=== PATIENT | female | born 1935 | race Caucasian/White ===

== ENCOUNTER 2020-01-04 18:47 | Emergency (ER) | payer OTHER, MEDICARE ==
[~2020-01-04] VITALS: Ht 165.1 cm; Wt 56.7 kg
[2020-01-04 19:34] VITALS: BP 136/81
--- NOTE | 2020-01-04 19:55 | ER.PDOC ---
General Chief Complaint: Extremities Stated Complaint: SWOLLEN RIGHT KNEE Time seen by MD: 19:51 Source: patient Exam Limitations: no limitations History of Present Illness Initial Comments Right knee pain and swelling for 4 days. No fever or chills. Patient has arthritis of both knees. She does not remember injury. She is not on anticoagulants. Recent Injury: No Where: home Severity: moderate Exacerbated By: walking movement Relieved By: nothing Allergies: Coded Allergies: Sulfa (Sulfonamide Antibiotics) (Verified Allergy, Unknown, 01/04/20) ciprofloxacin (Verified Allergy, Unknown, 01/04/20) Uncoded Allergies: BLOOD THINNERS (Allergy, Unknown, 01/04/20) NO BLOOD THINNERS PER DR ATKINS Past Medical History Medical History: cardiac problems, thyroid disease Surgical History: cholecystectomy, hysterectomy, knee Social History Alcohol Use: none Drug Use: none Review of Systems Constitutional: no symptoms reported EENTM: no symptoms reported Respiratory: no symptoms reported Cardiovascular: no symptoms reported Gastrointestinal: no symptoms reported Musculoskeletal: see HPI All Other Systems: Reviewed and Negative Physical Exam General Appearance: Alert, No Apparent Distress Lower Extremity: tenderness (right knee), swelling Joint Exam: effusion (right knee and mildly warm to touch with ecchymosis), limited ROM by pain Vascular: no vascular compromise, pulses full/equal Neuro/Psych: sensation nml, motor nml, oriented x3, CN's nml as tested, mood/affect nml Skin: color nml Back/Neck: nml inspection Respiratory: no resp distress, breath sounds nml CVS: reg rate & rhythm, heart sounds nml Abdomen: non-tender, no organomegaly, no bruit/mass Results/Orders Results/Orders Orders - CHINA ALICEA MD Xr Knee Rt 2v (01/04/20 19:44) Cbc With Auto Diff (01/04/20 19:44) Comprehensive Metabolic Panel (01/04/20 19:44) PT (01/04/20 19:44) Partial Thromboplastin Time. (01/04/20 19:44) C-Reactive Protein (01/04/20 19:44) Erythrocyte Sedimentation Rate (01/04/20 19:44) Lidocaine Hcl (Lidocaine 1% Vial) (01/04/20 20:44) Vital Signs Date Time Temp Pulse Resp B/P (MAP) Pulse Ox O2 Delivery O2 Flow Rate FiO2 01/04/20 19:34 98.9 70 16 01/04/20 19:34 98.9 70 16 136/81 (99) 96 Room Air 01/04/20 19:34 98.9 70 16 96 Laboratory Tests Test 01/04/20 20:00 White Blood Count 10.5 10^3/uL (4.5-11.0) Red Blood Count 3.92 10^6/uL (4.00-5.20) L Hemoglobin 11.8 g/dL (12.0-15.0) L Hematocrit 36.3 % (36.0-46.0) Mean Corpuscular Volume 92.6 fL (78-100) Mean Corpuscular Hemoglobin 30.1 pg (26-34) Mean Corpuscular Hemoglobin Concent 32.5 g/dL (33-36.5) L Red Cell Distribution Width 14.2 % (11.5-14.5) Platelet Count 300 10^3/uL (150-400) Mean Platelet Volume 9.0 fL (7.8-11.0) Neutrophils (%) (Auto) 76.1 % (41.0-85.0) Lymphocytes (%) (Auto) 12.0 % (24.0-44.0) L Monocytes (%) (Auto) 8.6 % (5.0-12.0) Neutrophils # (Auto) 8.0 10^3/uL (1.8-7.7) H Lymphocytes # (Auto) 1.27 10^3/uL1 (1.0-4.8) Monocytes # (Auto) 0.9 10^3/uL (0.3-0.8) H Absolute Immature Granulocyte (auto 0.01 10^3 u/L (0-2) Absolute Eosinophils (auto) 0.3 10^3/uL (0.0-0.2) H Immature Granulocytes % 0.10 % (0.00-0.50) Eosinophils % 2.9 % (0.0-5.0) Basophils % 0.3 % (0.0-0.2) H Basophils # 0.0 10^3/uL (0.0-0.1) Erythrocyte Sedimentation Rate 30 mm/hr (0-20) H Prothrombin Time 10.4 SEC (9.3-11.3) Prothrombin Time INR (Non-Therap) 1.0 Activated Partial Thromboplast Time 26.8 SEC (24.67-30.72) Sodium Level 136 mmol/L (132-145) Potassium Level 3.7 mmol/L (3.6-5.2) Chloride Level 102.0 mmol/L (96-109) Carbon Dioxide Level 26.3 mmol/L (20.0-32) Anion Gap 11.4 Blood Urea Nitrogen 31 mg/dL (7-18) H Creatinine 0.56 mg/dL (0.59-1.40) L Estimated GFR () 125.1 (>/=60) Est GFR (CKD-EPI)(Non-Afr Palauan) 103.4 (>/=60) BUN/Creatinine Ratio 55.0 Glucose Level 106 mg/dL (70-110) Calcium Level 10.0 mg/dL (8.4-10.5) Total Bilirubin 0.5 mg/dL (0.2-1.0) Aspartate Amino Transferase (AST) 21 U/L (0-35) Alanine Aminotransferase (ALT) 14 U/L (12-78) Alkaline Phosphatase 76 U/L (50-136) C-Reactive Protein 3.09 mg/dL (0.00-5.00) Total Protein 6.7 g/dL (6.4-8.2) Albumin 3.4 g/dL (3.4-5.0) Globulin 3.3 Progress Progress X rays right knee: Severe osteoarthritic changes of the right knee noted as well as extensive diffuse soft tissue swelling and a moderate size joint effusion. 2. The articular surfaces of the medial femoral condyle and medial tibial plateau are irregular which may be due nearly to osteoarthritis although osteomyelitis cannot be excluded. Nuclear medicine bone scan or MRI scan would be beneficial if there is clinical suspicion of osteomyelitis. Needle aspiration of right knee yielded blood. CBC is normal, counselled patient that blood in the knee will be reabsorbed in about 6 weeks. Departure Time of Disposition: 21:27 Disposition: 01 HOME, SELF-CARE Impression: Primary Impression: Hemarthrosis involving knee joint Condition: Stable Referrals: CHRISTA HOLLOWAY (PCP) PRIMARY CARE PROVIDER Additional Instructions: Continue Hydrocodone Hold Aspirin until you follow up with your PCP F/U with your PCP in 2-3 days F/U with Orthopedic Surgeon next week Return to ED if worsening or concerns Duration or Time Spent with Pa: 30 min Problem Qualifiers Primary Impression: Hemarthrosis involving knee joint Laterality: right Qualified Codes: M25.061 - Hemarthrosis, right knee CHINA ALICEA MD Jan 04, 2020 19:55
[2020-01-04 20:05] LABS: BASOPHIL % 0.3 % (0.0-0.2); EOSINOPHIL # 0.3 10^3/uL (0.0-0.2); EOSINOPHIL % 2.9 % (0.0-5.0); LYMPHOCYTES # 1.27 10^3/uL1 (1.0-4.8); MEAN CORP HGB 30.1 pg (26-34); MONOCYTES # 0.9 10^3/uL (0.3-0.8); MONOCYTES % 8.6 % (5.0-12.0); NEUTROPHILS % 76.1 % (41.0-85.0); PLATELET COUNT 300 10^3/uL (150-400); RED CELL DISTRIBUTION WIDTH 14.2 % (11.5-14.5)
--- NOTE | 2020-01-04 20:24 | DIREP ---
PROCEDURE:XRAY KNEE 2 VWS-RT COMPARISON:ISAAK Garcia, XRAY KNEE 3 VIEWS-RT, 01/04/2020, 04:56 PM. INDICATIONS:Pain and swelling FINDINGS: BONES:No fracture is identified. The articular surfaces of the medial femoral condyle and medial tibial plateau are irregular; osteomyelitis cannot be excluded with certainty. JOINTS:Severe osteoarthritis demonstrated characterized by complete loss of medial lateral joint space as well as fairly severe tricompartmental osteophyte formation. A moderate size suprapatellar joint effusion is noted. SOFT TISSUES:Severe diffuse soft tissue swelling is noted. OTHER:No additional findings. CONCLUSION: 1. Severe osteoarthritic changes of the right knee noted as well as extensive diffuse soft tissue swelling and a moderate size joint effusion. 2. The articular surfaces of the medial femoral condyle and medial tibial plateau are irregular which may be due nearly to osteoarthritis although osteomyelitis cannot be excluded. Nuclear medicine bone scan or MRI scan would be beneficial if there is clinical suspicion of osteomyelitis. Dictated by: Sesar Ho M.D. on 01/04/2020 at 08:19 PM
[2020-01-04 20:27] LABS: CARBON DIOXIDE 26.3 mmol/L (20.0-32)
[2020-01-04] MEDS ORDERED: LIDOCAINE 1% VIAL ONE (20:44)
[2020-01-04 21:35] VITALS: BP 128/69
== END 2020-01-04 21:35 | disposition home or self-care (01) ==
LOC: ER 18:47
DX: M25.061 Hemarthrosis, right knee (principal); Z88.1 Allergy status to other antibiotic agents; Z88.2 Allergy status to sulfonamides; Z90.49 Acquired absence of other specified parts of digestive tract; Z90.710 Acquired absence of both cervix and uterus
CPT/HCPCS: 36415; 73560; 80053; 85025; 85610; 85651; 85730; 86140; 99284; J2001

== ENCOUNTER 2020-05-23 15:53 | Emergency (ER) | payer MEDICARE, OTHER ==
[~2020-05-23] VITALS: Ht 154.9 cm; Wt 49.9 kg
--- NOTE | 2020-05-23 16:10 | NUR ---
PT TO ROOM 6 VIA W/C C/C BILATERAL LEG SWELLING FOR 5 DAYS PT HAS PACEMAKER DENIED N/V/D CP. PT STS SHE HAD A HOME HEALTH VISIT TODAY AND HOME HEALTH STATED TO BE EVALUATED IN ER. PT LEGS BILATERAL SWELLING SLIGHT DISCOLORATION OF BILATERAL FEET PEDAL PULSES PRESENT BUT WEAK BILATERAL PITTING EDEMA.
--- NOTE | 2020-05-23 16:36 | ER.PDOC ---
General Chief Complaint: Requesting Medical Care Stated Complaint: LEGS/FEET SWELLING Time seen by MD: 16:33 Source: patient, family Exam Limitations: no limitations History of Present Illness Initial Comments Patient presents for 1 week B/L lower extremity swelling. She has hx of CHF and is on lasix 20mg daily. Her dies 3 weeks ago and her routine has been off. Home health was concerned with the degree of swelling and recommended she get checked out. No chest pain or SOB. No calf pain. No other complaints Onset: last week Recent Injury: No Where: home Severity: moderate Exacerbated By: nothing Relieved By: nothing Prior symptoms/Treatment: Similar symptoms previous Allergies: Coded Allergies: Sulfa (Sulfonamide Antibiotics) (Verified Allergy, Unknown, 01/04/20) ciprofloxacin (Verified Allergy, Unknown, 01/04/20) Uncoded Allergies: BLOOD THINNERS (Allergy, Unknown, 01/04/20) NO BLOOD THINNERS PER DR ATKINS Past Medical History Medical History: cardiac problems, thyroid disease Surgical History: cholecystectomy, hysterectomy, knee Family History Significant Family History: no pertinent family hx Social History Smoking: non-smoker Drug Use: none Reviewed Nursing Reviewed: Vital Signs, Abn. Noted, Nursing Assessment Review of Systems Constitutional: no symptoms reported EENTM: no symptoms reported Respiratory: no symptoms reported Cardiovascular: see HPI, edema Gastrointestinal: no symptoms reported Musculoskeletal: no symptoms reported Skin: no symptoms reported All Other Systems: Reviewed and Negative Physical Exam General Appearance: Alert, No Apparent Distress Lower Extremity: swelling (2+ pitting edema to B/L lower extremities), pedal edema Joint Exam: joints nml, nml ROM Vascular: no vascular compromise, pulses full/equal Neuro/Psych: sensation nml, motor nml Skin: color nml, warm/dry Back/Neck: nml inspection Respiratory: no resp distress, breath sounds nml CVS: reg rate & rhythm, heart sounds nml Abdomen: non-tender Results/Orders Results/Orders Orders - CHINA ALICEA MD Arterial Blood Gas (05/23/20 21:09) Covid19 Antigen Brandie Deepti (05/23/20 21:59) Vital Signs Date Time Temp Pulse Resp B/P (MAP) Pulse Ox O2 Delivery O2 Flow Rate FiO2 05/23/20 17:12 125/79 05/23/20 17:00 97.7 68 16 97 05/23/20 16:54 97.7 68 16 97 05/23/20 16:54 97.7 68 16 97 Administered Medications Medications (Trade) Dose Ordered Sig/Rowena Route PRN Reason Start Time Stop Time Status Last Admin Dose Admin Furosemide (Lasix) 40 mg STAT STAT IV 05/23/20 16:32 05/23/20 16:34 DC 05/23/20 17:12 40 MG Laboratory Tests Test 05/23/20 17:16 05/23/20 21:15 05/23/20 21:25 White Blood Count 7.1 10^3/uL (4.5-11.0) Red Blood Count 4.58 10^6/uL (4.00-5.20) Hemoglobin 13.8 g/dL (12.0-15.0) Hematocrit 43.5 % (36.0-46.0) Mean Corpuscular Volume 95.0 fL (78-100) Mean Corpuscular Hemoglobin 30.1 pg (26-34) Mean Corpuscular Hemoglobin Concent 31.7 g/dL (33-36.5) L Red Cell Distribution Width 15.2 % (11.5-14.5) H Platelet Count 283 10^3/uL (150-400) Mean Platelet Volume 9.8 fL (7.8-11.0) Neutrophils (%) (Auto) 69.3 % (41.0-85.0) Lymphocytes (%) (Auto) 19.3 % (24.0-44.0) L Monocytes (%) (Auto) 7.6 % (5.0-12.0) Neutrophils # (Auto) 4.9 10^3/uL (1.8-7.7) Lymphocytes # (Auto) 1.37 10^3/uL1 (1.0-4.8) Monocytes # (Auto) 0.5 10^3/uL (0.3-0.8) Absolute Immature Granulocyte (auto 0.01 10^3 u/L (0-2) Absolute Eosinophils (auto) 0.2 10^3/uL (0.0-0.2) Immature Granulocytes % 0.10 % (0.00-0.50) Eosinophils % 3.1 % (0.0-5.0) Basophils % 0.6 % (0.0-0.2) H Basophils # 0.0 10^3/uL (0.0-0.1) Prothrombin Time 11.1 SEC (9.3-11.3) Prothrombin Time INR (Non-Therap) 1.1 Activated Partial Thromboplast Time 26.2 SEC (24.67-30.72) D-Dimer 1.97 mg/L (0.19-0.49) *H Sodium Level 142 mmol/L (132-145) Potassium Level 3.6 mmol/L (3.6-5.2) Chloride Level 101.0 mmol/L (96-109) Carbon Dioxide Level 35.2 mmol/L (20.0-32) H Anion Gap 9.4 Blood Urea Nitrogen 29 mg/dL (7-18) H Creatinine 0.98 mg/dL (0.59-1.40) Estimated GFR () 65.4 (>/=60) Est GFR (CKD-EPI)(Non-Afr Norwegian) 54.1 (>/=60) BUN/Creatinine Ratio 29.0 Glucose Level 89 mg/dL (70-110) Calcium Level 8.7 mg/dL (8.4-10.5) Total Bilirubin 0.6 mg/dL (0.2-1.0) Aspartate Amino Transferase (AST) 28 U/L (0-35) Alanine Aminotransferase (ALT) 21 U/L (12-78) Alkaline Phosphatase 91 U/L (50-136) Total Creatine Kinase 59 U/L (26-192) Creatine Kinase MB 1.3 ng/mL (0.5-3.6) Troponin I < 0.02 ng/mL (0.00-0.05) Pro-B-Type Natriuretic Peptide 2123 pg/mL (0-450) H Total Protein 7.4 g/dL (6.4-8.2) Albumin 3.7 g/dL (3.4-5.0) Globulin 3.7 Albumin/Globulin Ratio 1.000 SARS-CoV-2 Antigen (Rapid) NEGATIVE (NEGATIVE) Blood Gas Sample Site RB Blood pH 7.448 (7.350-7.450) Blood Gas PCO2 48.2 mmHg (35.0-45.0) H Blood Gas PO2 58.6 mmHg (80.0-100.0) L Blood Gas HCO3 32.6 mmol/L (22.0-26.0) H Blood Gas Base Excess 7.4 mmol/L (-2.0-2.0) H Rosalino Test POSITIVE Arterial Blood Oxygen Saturation 91.1 % (94.0-97.00) L Deoxyhemoglobin 8.8 % (0.0-5.0) H Carboxyhemoglobin 0.9 % (0.0-3.9) Methemoglobin 0.3 % (0.00-5.0) Total Hemoglobin 13.0 % (12.0-17.8) Total Oxygen Concentration 16.4 % (13.5-17.5) Blood Gas Temperature 37 FiO2 21 % (20-101) Total Carbon Dioxide 34.1 mmol/L (23-27) H Progress Progress CTA chest: No evidence of pulmonary embolic disease is identified. 2. Nonspecific 5.9 mm nodule in the periphery of the right lower lobe. Recommend follow-up in 3 months. 3. Peripheral tree-in-bud like opacities with mild hyper expansion may be related underlying chronic lung disease or potential atypical infection such as with mycobacterium avium intracellulare. 4. Cardiomegaly. No evidence of congestive failure . Patient is not short of breath even with exertion and Oxygen saturation is okay. Apart from elevated BNP, rest of labs are unremarkable. I told her to increase Lasix for 3 days and decrease to normal dosing after that. EKG/XRAY/CT/US EKG: NSR (107, A fib), no ST T wave changes EKG Comments: rate 107, A fib Utrasound Comments: No DVT bilaterally ER DEPART Departure Time of Disposition: 22:12 Disposition: 01 HOME, SELF-CARE Impression: Primary Impression: CHF (congestive heart failure) Condition: Stable Referrals: CHRISTA HOLLOWAY (PCP) PRIMARY CARE PROVIDER Additional Instructions: Increase Lasix to 40 daily for next 2 days KCL F/U with your PCP in 3 days Return to ED if worsening or concerns Duration or Time Spent with Pa: 60 min Problem Qualifiers Primary Impression: CHF (congestive heart failure) Heart failure type: unspecified Heart failure chronicity: chronic Qualified Codes: I50.9 - Heart failure, unspecified CAMDEN DE LEON MD May 23, 2020 16:36 CHINA ALICEA MD May 23, 2020 22:18
[2020-05-23 16:54] VITALS: BP 98/57
[2020-05-23] MEDS: LASIX IV STA (17:12)
[2020-05-23] MEDS ORDERED: LASIX ONE (17:17)
--- NOTE | 2020-05-23 17:17 | DIREP ---
PROCEDURE:CHEST 1 VIEW COMPARISON:ISAAK Garcia, XRAY CHEST SINGLE VW, 04/04/2020, 04:22 PM. INDICATIONS:chf FINDINGS: LUNGS/PLEURA:The lungs are well-expanded and clear no focal consolidation or pleural effusions. VASCULATURE:Normal. Unremarkable pulmonary vasculature. CARDIAC:Mild cardiomegaly. Left-sided pacemaker noted. MEDIASTINUM:Tortuous aorta. BONES:Normal. No fracture or visible bony lesion. Severe degenerative changes in the AC joints, glenohumeral joints and secondary findings of chronic superior rotator cuff tear with degeneration. OTHER:Negative. CONCLUSION: 1. No evidence for acute cardiopulmonary disease. No visible CHF or fluid overload. 2. Left-sided dual lead permanent pacemaker. 3. Advanced degenerative changes in both shoulders. 4. No significant interval change. Dictated by: Herson Cason MD on 05/23/2020 at 05:14 PM
[2020-05-23 17:25] LABS: BASOPHIL % 0.6 % (0.0-0.2); EOSINOPHIL # 0.2 10^3/uL (0.0-0.2); EOSINOPHIL % 3.1 % (0.0-5.0); LYMPHOCYTES # 1.37 10^3/uL1 (1.0-4.8); LYMPHOCYTES % 19.3 % (24.0-44.0); MEAN CORP HGB 30.1 pg (26-34); MONOCYTES # 0.5 10^3/uL (0.3-0.8); MONOCYTES % 7.6 % (5.0-12.0); NEUTROPHIL # 4.9 10^3/uL (1.8-7.7); NEUTROPHILS % 69.3 % (41.0-85.0); PLATELET COUNT 283 10^3/uL (150-400); RED CELL DISTRIBUTION WIDTH 15.2 % (11.5-14.5)
--- NOTE | 2020-05-23 17:30 | NUR ---
BEDSIDE COMMODE PLACED IN ROOM
--- NOTE | 2020-05-23 17:40 | PCM.EKG ---
[facility] Test Date: 2020-05-23 Test Time: 17:34:54 Pat Name: HERB SOLIMAN Department: Room: Gender: F Last Marker: DAYAMI : 1935 Requested By: CAMDEN DE LEON Order Number: [id number] Reading MD: Measurements Intervals [place] Rate: 107 P: [place]: QRS: 68 QRSD: 76 T: -5 QT: 351 QTc: 469 Interpretive Statements Atrial fibrillation Low voltage, precordial leads Probable anteroseptal infarct, old Borderline repolarization abnormality No previous ECG available for comparison Please click the below link to view image of tracing.
[2020-05-23 17:48] LABS: ALANINE AMINOTRANSFERASE(ML) 21 U/L (12-78); ALKALINE PHOSPHATASE 91 U/L (50-136); ASPARTATE AMINO TRANSFERASE 28 U/L (0-35); CALCIUM 8.7 mg/dL (8.4-10.5); CARBON DIOXIDE 35.2 mmol/L (20.0-32); GLUCOSE 89 mg/dL (70-110)
--- NOTE | 2020-05-23 18:00 | NUR ---
PT RESTING ON CART IN ROOM 6 DAUGHTER AT BEDSIDE
--- NOTE | 2020-05-23 19:24 | DIREP ---
PROCEDURE:US VENOUS IMAGING BILAT COMPARISON:None. INDICATIONS:swelling TECHNIQUE:The lower extremities were evaluated utilizing lagunas scale images with segmental compression, color Doppler, and spectral Doppler with respiratory variation and augmentation. FINDINGS: RIGHT External iliac vein: Patent Common femoral vein:Patent Profunda femoris: Patent Superficial femoral vein:Patent Popliteal vein:Patent Posterior tibial vein:Patent Peroneal vein: Patent Greater saphenous vein:Patent Waveforms: Within normal limits. Other: There is soft tissue edema seen in the calf. LEFT External iliac vein: Patent Common femoral vein:Patent Profunda femoris: Patent Superficial femoral vein:Patent Popliteal vein:Patent Posterior tibial vein:Patent Peroneal vein: Patent Greater saphenous vein:Patent Waveforms: Within normal limits. Other: There is soft tissue edema seen in the calf. CONCLUSION: 1. No evidence of DVT in the lower extremities. 2. Bilateral soft tissue edema seen at the level of the calfs. Dictated by: Prem Arevalo MD on 05/23/2020 at 07:19 PM
--- NOTE | 2020-05-23 20:15 | DIREP ---
PROCEDURE:CT PULMONARY ANGIOGRAM TECHNIQUE:Following the intravenous administration of contrast material, axial cuts were obtained through the chest. Multiplanar / 3-D reconstructions are provided. Satisfactory pulmonary arterial contrast opacification was achieved. The images were viewed at lung and soft tissue settings. COMPARISON:SANDRO Garcia, CT-ABDOMEN /PELVIS W/O CONTRAST, 06/17/2016, 12:31 PM. INDICATIONS:dimer, CP FINDINGS: PULMONARY ARTERIES:Patent. LUNGS:Mild hyper expanded scattered tree-in-bud like peripheral opacities particularly involving the right middle lobe and right upper lobe. There is a peripheral based small 5.9 mm nodule in the right lower lobe (image number 32 of series 6). PLEURA:Normal. CARDIAC:Borderline cardiomegaly with left-sided pacemaker. THORACIC AORTA:Atherosclerotic vascular calcifications. No evidence of aneurysm or dissection. MEDIASTINUM:Normal. BONES:Normal. THYROID:Normal. OTHER:Fat containing right posterior Bochdalek's hernia measuring 7 cm in transverse dimension that is unchanged from the 2017 study. CONCLUSION: 1. No evidence of pulmonary embolic disease is identified. 2. Nonspecific 5.9 mm nodule in the periphery of the right lower lobe. Recommend follow-up in 3 months. 3. Peripheral tree-in-bud like opacities with mild hyper expansion may be related underlying chronic lung disease or potential atypical infection such as with mycobacterium avium intracellulare. 4. Cardiomegaly. No evidence of congestive failure . Dictated by: Prem Arevalo MD on 05/23/2020 at 08:07 PM
--- NOTE | 2020-05-23 21:35 | NUR ---
IV STARTED 22g IV STARTED TO LEFT INNER FORARM USING ASEPTIC TECHNIQUE X1 ATTEMPT. IV FLUSHED EASILY. PT TOLERATED WELL.
[2020-05-23 21:37] LABS: ABG PCO2 48.2 mmHg (35.0-45.0); ABG PH 7.448 (7.350-7.450); BE(B) 7.4 mmol/L (-2.0-2.0); HCO3act 32.6 mmol/L (22.0-26.0); pO2 58.6 mmHg (80.0-100.0)
--- NOTE | 2020-05-23 21:40 | NUR ---
BEDPAN PT WAS PLACED ON THE BEDPAN FOR VOIDING.
--- NOTE | 2020-05-23 22:07 | NUR ---
LAB CALLED WITH COVID NEGATIVE ANTIGEN AT THIS TIME. EDP NOTIFIED.
[2020-05-23] MEDS ORDERED: KLOR-CON 10 PO ONE (22:28)
[2020-05-23] MEDS: KLOR-CON 10 PO STA (22:52)
== END 2020-05-23 22:54 | disposition home or self-care (01) ==
LOC: ER 15:53
DX: I50.9 Heart failure, unspecified (principal); R60.0 Localized edema; Z20.822 Contact with and (suspected) exposure to COVID-19
CPT/HCPCS: 36415; 36600; 71045; 71275; 80053; 82550; 82553; 82803; 83880; 84484; 85025; 85379; 85610; 85730; 87426; 93005; 93970; 96374; 99285; J1940; J3490; Q9965